=== PATIENT | female | born 1990 | race Caucasian/White ===

== ENCOUNTER 2019-04-26 13:55 | Emergency (ER) | payer BC, SELFPAY ==
--- NOTE | ~2019-04-26 | CT_ITS ---
EXAMINATION: CT abdomen pelvis w con EXAM DATE: 04/26/2019 15:14 INDICATION: Abdominal pain. Post cholecystectomy 2 weeks ago. TECHNIQUE: Spiral CT of the abdomen and pelvis was performed following intravenous injection of 100 m L Omnipaque 350. Axial, coronal and sagittal images were reviewed. The dose-length product (DLP) fo r this examination was 929.53 mGy-cm. The exposure was tailored according to patient size (auto mA e xposure control), and iterative reconstruction (ASIR) was used as additional dose reduction technique . Comparison is made to prior examination from 02/14/2019. FINDINGS: There is hepatic steatosis without suspicious focal lesion identified. Spleen, adrenal glan ds, pancreas are unremarkable. There are cholecystectomy clips. Mild inflammation the gallbladder fo ssa consistent with recent surgery. Portal and splenic veins are patent. Kidneys enhance symmetrica lly. There is no hydronephrosis. The uterus and ovaries are unremarkable, no adnexal mass. The bl adder is unremarkable. There is no retroperitoneal or pelvic lymphadenopathy. The appendix is normal. The stomach and small bowel are unremarkable. There is expected amount of c olonic stool. No free intraperitoneal gas. The heart is normal in size. There are no pericardial or pleural effusions. The lung bases are unremarkable. There are no osteoblastic or osteolytic les ions identified. IMPRESSION: 1. Mild postoperative fat stranding in the gallbladder fossa. No fluid collection. 2. Hepatic steatosis. Reviewed, dictated and finalized at location B. LINE ENGINE ASSEMBLER IMPRESSION: 1. Mild postoperative fat stranding in the gallbladder fossa. No fluid collect ion. 2. Hepatic steatosis.
[2019-04-26 14:03] VITALS: BP 113/74; PULSE 95; RESP 24; TEMP 36.6; O2SAT 100
[2019-04-26 14:23] VITALS: BP 124/80; PULSE 73; RESP 16; TEMP 36.6; O2SAT 99
[2019-04-26 15:07] LABS: Basophils Absolute Auto 0.1 K/mm3 (0.0-0.1); Basophils Percent Auto 0.6 % (0.2-1.2); Eosinophils Absolute Auto 0.6 K/mm3 (0-0.3); Eosinophils Percent Auto 4.2 % (0-4.4); Hematocrit 41.3 % (37.0-47.0); Hemoglobin 13.4 g/dL (12.0-15.0); Immature Granulocyte Absolute 0.33 K/mm3 (0.00-0.031); Immature Granulocyte Percent A 2.4 % (0-0.5); Immature Platelet Fraction Pct 20.9 % (0.9-11.2); Lymphocytes Absolute Auto 3.23 K/mm3 (0.9-3.2); Lymphocytes Percent Auto 23.4 % (18.3-44.2); Mean Corpuscular HGB Conc 32.4 g/dl (32-36); Mean Corpuscular Hemoglobin 27.9 pg (26-34); Mean Corpuscular Volume 85.9 fl (80-100); Mean Platelet Volume 15.8 fl (7.4-10.4); Monocytes Percent Auto 7.5 % (2.6-8.5); Neutrophils Absolute Auto 8.6 K/mm3 (1.3-6.7); Neutrophils Percent Auto 61.9 % (45.5-73.1); Platelet Count Result 111 k/mm3 (150-375); Red Blood Count 4.81 M/mm3 (4.2-5.4); Red Cell Distribution Width 14.4 % (11.5-14.5); White Blood Count 13.8 K/mm3 (4.5-10.0)
[2019-04-26 15:09] LABS: Add Urine Microscopic? YES; Appearance Urine Cloudy (Clear); Bilirubin Urine Negative (Negative); Blood Urine Negative (Negative); Color Urine Yellow (Yellow); Glucose Urine UA Negative (Negative); Ketones Urine Negative (Negative); Leukocyte Esterase Ur Trace LEU/UL (Negative); Mucus Urine Rare /lpf; Nitrate Urine Negative (Negative); Protein Urine Negative (Negative); RBC Urine 0-2 /hpf (0-2); Specific Grav Ur 1.016 (1.001-1.035); Squamous Epithelial Cell Urine Few /hpf (Few); Urobilinogen Urine Negative mg/dL (<2.0)
[2019-04-26 15:11] LABS: Blood Urea Nitrogen 16 mg/dL (8-26); Estimated CRCL calculation 98 ml/min; Estimated Glomerular Filt Rate > 60
--- NOTE | 2019-04-26 15:15 | ED.ABDPAIN ---
HPI - Abdominal Pain General Chief Complaint: Abdominal Pain Stated Complaint: ABD PAIN, POST PATRICIO 2 WKS AGO Time Seen by Provider: 04/26/19 14:09 Source: patient and family Mode of arrival: ambulatory Limitations: no limitations History of Present Illness HPI narrative: Patient is a 29-year-old female who presents to emergency department for evaluation of periumbilical abdominal pain that began in the early hours of the morning today took ibuprofen with no improvement notes constant pain worse with activity and movement. Patient had cholecystectomy 2 weeks ago notes that she has been doing fine. Surgery was performed by Dr. Abebe patient has follow-up this Thursday. . Patient has nausea but denies emesis diarrhea rectal bleeding or melena. Pain does not radiate. Related Data Allergies Allergy/AdvReac Type Severity Reaction Status Date / Time amoxicillin Allergy Mild Rash Verified 06/19/17 21:14 Penicillins Allergy Mild Rash Verified 06/19/17 21:14 Review of Systems Review of Systems: All systems reviewed & are unremarkable except as noted in HPI and below PMFSH Past Medical History Medical History (Updated 04/26/19 @ 17:02 by Kael Rodrigues PA-C) No significant past medical history Surgical History Surgical History History of oral surgery Hx of cholecystectomy Family History Family History (Updated 10/27/13 @ 07:13 by DOCTOR UNKNOWN) Father Hypertension Grandparent Cerebrovascular accident Family history of coronary artery disease Diabetes mellitus Social History Social History Smoking status: Never smoker Alcohol intake: never Gender identity (if verbalized by the patient): Female Exam Narrative: Exam Narrative: GENERAL: Well-appearing, well-nourished, and in no acute distress. HEAD: Normocephalic, atraumatic. EYES: PERRLA and EOMI. ENT: Nares clear, no rhinorrhea or epistaxis. Mucous membranes moist. CHEST: Clear to auscultation. No respiratory distress. No wheezes rales or rhonchi HEART: Regular rate and rhythm. No murmur heard. Normal peripheral pulses. ABDOMEN: Soft, epigastric tenderness to palpation, nondistended, normal active bowel sounds. Surgical sites are well approximated no erythema EXTREMITIES: Normal range of motion. No edema. SKIN: Warm, dry, no rash. NEURO: No focal deficits. Alert and oriented x3. Normal speech and gait PSYCH: Normal mood and affect. Course Course Emergency Course: Patient in the room in no distress resting comfortably aware of case findings treatment plan and diagnosis agreeing to follow-up with general surgery on Thursday as planned Consultations Consultation #1: Patient case discussed with surgeons office who will follow the patient in clinic Thursday Date: 04/26/19 Vital Signs Vital signs: Vital Signs Temperature 97.8 F 04/26/19 14:03 Pulse Rate 95 04/26/19 14:03 Respiratory Rate 24 H 04/26/19 14:03 Blood Pressure 113/74 04/26/19 14:03 Pulse Oximetry 100 04/26/19 14:03 Temperature 97.9 F 04/26/19 14:23 Pulse Rate 73 04/26/19 14:23 Respiratory Rate 16 04/26/19 14:23 Blood Pressure 124/80 04/26/19 14:23 Pulse Oximetry 99 04/26/19 14:23 MDM - Abdominal Pain MDM Narrative Medical decision making narrative: Patient with abdominal pain of uncertain etiology afebrile nontoxic-appearing feeling better with interventions in the ER aware of CAT scan findings and resting comfortably in the room noting she is feeling better patient aware of discussion with her surgeon's office and agrees to follow-up with surgeon and was provided with reasons to return Lab Data Result diagrams: 04/26/19 14:50 04/26/19 15:09 Labs: Lab Results 04/26/19 04/26/19 04/26/19 Range/Units 14:50 14:50 14:50 WBC 13.8 H (4.5-10.0) K/mm3 RBC 4.81 (4.2-5.4) M/mm3 Hgb 13.4 (12.0-15.
[2019-04-26 15:18] LABS: Alanine Aminotransferase 78 U/L (4-35); Albumin Level 4.2 g/dL (3.5-5.1); Alkaline Phosphatase 68 U/L (38-126); Aspartate Amino Transferase 43 U/L (14-36); Bilirubin,Total 0.5 mg/dL (0.2-1.3); Blood Urea Nitrogen 14 mg/dL (7-17); Carbon Dioxide 24 mmol/L (22-30); Chloride 102 mmol/L (98-107); Estimated CRCL calculation 111 ml/min; Estimated Glomerular Filt Rate > 60; Glucose 96 mg/dL (65-105); Lipase 41 U/L (23-300); Sodium 139 mmol/L (137-145)
[2019-04-26] MEDS: SODIUM CHLORIDE 0.9% IV 1,000 ML 999 ML IV CONT (15:35)
[2019-04-26] MEDS: ONDANSETRON INJ 4 MG/2 ML VIAL IV PUSH (15:36)
[2019-04-26] MEDS: FAMOTIDINE 20 MG/2 ML VIAL IV PUSH (15:36)
[2019-04-26 15:43] LABS: Lactic Acid Reflex 0.6 mmol/L (0.7-2.1)
== END 2019-04-26 17:16 | disposition home or self-care (01) ==
PROVIDERS: Emergency Medicine Emergency Medical Services; Emergency Provider Emergency Medicine
DX: R10.33 Periumbilical pain (principal)
CPT/HCPCS: 36415; 74177; 80053; 81001; 81025; 83605; 83690; 85025; 85055; 96361; 96374; 96375; 99284; J2405; J7030; Q9967

== ENCOUNTER 2021-04-17 09:30 | Outpatient (CLI) | payer OTHER, SELFPAY ==
--- NOTE | ~2021-04-17 | US_ITS ---
EXAMINATION: US abdomen complete DATE: 04/17/2021 10:20 INDICATION: Other secondary thrombocytopenia TECHNIQUE: Multiple grayscale and Doppler ultrasound images of the abdomen were obtained. COMPARISON: CT, 04/26/2019 FINDINGS: Bowel gas obscures visualization of the pancreas. The visualized portions of the pancreas a re unremarkable. The liver is normal with normal echogenicity and echotexture. No surface nodularity. Normal hepatopetal flow in the main portal vein. The gallbladder is surgically absent. The normal co mmon bile duct measures 3 mm. The visualized portions of the aorta and inferior vena cava are normal. The right kidney measures 9.8 x 4.2 x 3.8 cm. The left kidney measures 11.1 x 4.5 x 4.5 cm. The kidne ys demonstrate normal parenchymal echogenicity. There is no hydronephrosis. The spleen is normal in a ppearance and measures 11.7 cm. IMPRESSION: 1. Unremarkable postcholecystectomy ultrasound. Reviewed, dictated and finalized at location A. TOR TECHNICIAN
[2021-04-17 10:35] LABS: Hematocrit 44.6 % (37.0-47.0); Hemoglobin 14.6 g/dL (12.0-15.0); Immature Platelet Fraction Pct 21.6 % (0.9-11.2); Mean Corpuscular HGB Conc 32.7 g/dl (32-36); Mean Corpuscular Hemoglobin 29.1 pg (26-34); Mean Platelet Volume 13.9 fl (7.4-10.4); Platelet Count Result 118 k/mm3 (150-375); Red Blood Count 5.01 M/mm3 (4.2-5.4); Red Cell Distribution Width 13.4 % (11.5-14.5); White Blood Count 12.4 K/mm3 (4.5-10.0)
== END 2021-04-17 09:31 | disposition home or self-care (01) ==
LOC: ANHIMG 09:45
PROVIDERS: PCP Internal Medicine Hematology & Oncology; Visit Provider Internal Medicine Hematology & Oncology
DX: D69.59 Other secondary thrombocytopenia (principal)
CPT/HCPCS: 36415; 76700; 85027; 85055

== ENCOUNTER 2021-04-23 09:49 | Outpatient (CLI) | payer OTHER, SELFPAY ==
[2021-04-23 10:28] LABS: Basophils Absolute Auto 0.1 K/mm3 (0.0-0.1); Basophils Percent Auto 0.6 % (0.2-1.2); Eosinophils Absolute Auto 0.3 K/mm3 (0-0.3); Eosinophils Percent Auto 2.8 % (0-4.4); Hemoglobin 14.2 g/dL (12.0-15.0); Immature Granulocyte Absolute 0.21 K/mm3 (0.00-0.031); Immature Granulocyte Percent A 1.9 % (0-0.5); Lymphocytes Absolute Auto 3.11 K/mm3 (0.9-3.2); Lymphocytes Percent Auto 28.8 % (18.3-44.2); Mean Corpuscular HGB Conc 32.3 g/dl (32-36); Mean Corpuscular Hemoglobin 28.7 pg (26-34); Mean Corpuscular Volume 89.1 fl (80-100); Mean Platelet Volume 14.6 fl (7.4-10.4); Monocytes Absolute Auto 0.9 K/mm3 (0.1-0.6); Monocytes Percent Auto 8.2 % (2.6-8.5); Neutrophils Absolute Auto 6.2 K/mm3 (1.3-6.7); Neutrophils Percent Auto 57.7 % (45.5-73.1); Platelet Count Result 112 k/mm3 (150-375); Red Blood Count 4.94 M/mm3 (4.2-5.4); Red Cell Distribution Width 13.6 % (11.5-14.5); White Blood Count 10.8 K/mm3 (4.5-10.0)
[2021-04-23 10:33] LABS: Alanine Aminotransferase 44 U/L (4-35); Albumin Level 4.2 g/dL (3.5-5.1); Alkaline Phosphatase 54 U/L (38-126); Anion Gap 6 mmol/L (8-16); Aspartate Amino Transferase 27 U/L (14-36); Bilirubin,Total 0.4 mg/dL (0.2-1.3); Blood Urea Nitrogen 10 mg/dL (7-17); CRP 0.6 mg/dL (<1.0); Calcium 8.7 mg/dL (8.4-10.2); Carbon Dioxide 29 mmol/L (22-30); Chloride 108 mmol/L (98-107); Estimated Glomerular Filt Rate > 60; Glucose 96 mg/dL (65-110); Potassium 3.5 mmol/L (3.4-5.0); Sodium 143 mmol/L (137-145)
[2021-04-23 10:54] LABS: Iron 73 ug/dL (37-170)
[2021-04-23 11:03] LABS: Percent Iron Saturation 20 % (20-50)
[2021-04-23 11:51] LABS: Erythrocyte Sedimentation Rate 11 mm/hr (0-20)
== END 2021-04-23 09:50 | disposition home or self-care (01) ==
LOC: ANHLAB 09:54
PROVIDERS: PCP Internal Medicine Hematology & Oncology; Visit Provider Internal Medicine Hematology & Oncology
DX: D72.829 Elevated white blood cell count, unspecified (principal); D69.59 Other secondary thrombocytopenia
CPT/HCPCS: 36415; 80053; 82607; 82728; 83540; 83550; 85025; 85055; 85652; 86140; 88184